=== PATIENT | female | born 1970 ===

== ENCOUNTER 2023-09-27 12:41 | Outpatient (AMB) | payer OTHER, SELFPAY ==
--- NOTE | 2023-09-27 13:27 | A.OFFVIS_ITS ---
Intake Vital Signs 3 09/27/23 13:40 Height 5 ft 5 in Weight 240 lb 6 oz BMI 40.0 BP 173/100 H Blood Pressure Location Lt brachial Position Sitting Pulse 76 Intake Visit Reasons: Right axillary abscess w/ drainage Intake Note: Patient is seen in office for evaluation and treatment of an abscess of the right axilla. 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 Lather from neck to toes.; 2 doses dulaglutide (Trulicity) mg subcut empagliflozin (Jardiance) 25 mg PO DAILY fluticasone propionate 50 mcg/actuation 1 spray intranasal BID folic acid 1 mg PO DAILY hydroxyzine HCl 50 mg PO BID lurasidone 80 mg PO DAILY omalizumab (Xolair) mg subcut omeprazole 20 mg PO DAILY rosuvastatin 5 mg PO DAILY HPI HPI Comments 2 History of Present Illness0 Details 53-year-old female patient presenting wi th complaints of a right axillary abscess. She has had several recurrent infections treated with oral antibiotics. She reports the site will settle but then refill and become infected again. She is never undergone incision and drainage. She currently denies any bleeding or discharge, fever, chills or other associated symptoms. She denies symptoms in the left axilla or groins. She does feel a scar in the axilla which she is self-conscious about. 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 [facility] Family History Maternal Aunt Breast cancer, Onset Age: 40 Maternal Aunt Breast cancer, Onset Age: 40 Maternal Aunt Breast cancer, Onset Age: 50 Social History Alcohol intake: never Patient Tobacco Use Status: Never used Tobacco Review of Systems Const All systems reviewed & are unremarkable except as noted in HPI and below Physical Exam Vital Signs: Last Vital Signs Pulse 76 09/27/23 13:40 BP 173/100 H 09/27/23 13:40 BMI result Body Mass Index 40.0 Const General: cooperative and no acute distress Nutritional Appearance: well nourished Orientation/consciousness: patient oriented x3 Limitations: no limitations HEENT Head: Yes normocephalic and Yes atraumatic Ears: hearing grossly normal bilaterally Chest Chest/axillae images: 2 1. Area of scarring in the lateral inferior axilla, no erythema or fluctuance is noted at this time. No tenderness to palpation. Findings suggestive of hidradenitis. Resp Effort & Inspection: normal respiratory effort, no audible wheezes, no cough and no respiratory distress Cardio Jugular venous distension: no JVD GI Inspection: Yes normal to inspection Skin Other: Warm, dry, no rash Neuro General: patient oriented x3 Extrem General: Yes no clubbing, cyanosis or edema Assessment & Plan Assessment & Plan (1) Hidradenitis: Code(s): L73.2 - Hidradenitis suppurativa Plan Patient with a small area of hidradenitis in the right axilla. There is no active infection at this time and no surgical drainage is required at this time. I would recommend skin decontamination using a surgical scrub and a prescribed Hibiclens. This should be used several times weekly. She was also cautioned to avoid touching her axilla and then touch other areas of her body. She was encouraged to wash her hands if touching the infection. She expressed understanding and agrees with the plan. She should follow up as needed. Medications: New 2 chlorhexidine gluconate 4% (Hibiclens) 1 appl topically 2-3 times weekly, lather in shower and leave on for 1 minute before rinsing. Lather from neck to toes.; 236 mL 4RF L73.2 - Hidradenitis suppurativa Coding Level of Care Code New Pt Level 4 (66674) Diagnoses Hidradenitis L73.2
[2023-09-27 13:40] VITALS: BP 173/100; PULSE 76; BMI 40.0
== END 2023-09-27 13:42 | disposition home or self-care (01) ==
PROVIDERS: PCP Internal Medicine; Visit Provider Surgery
DX: L73.2 Hidradenitis suppurativa (principal)
CPT/HCPCS: 99204

== ENCOUNTER → 2023-09-27 12:41 | Outpatient (BNVA) | payer OTHER, SELFPAY | PROVIDERS: PCP Internal Medicine; Visit Provider Surgery ==

== ENCOUNTER 2023-10-10 14:02 | Outpatient (AMB) | payer OTHER, SELFPAY ==
--- NOTE | 2023-10-10 14:08 | A.OFFVIS_ITS ---
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 Lather from neck to toes.; 2 doses dulaglutide (Trulicity) mg subcut empagliflozin (Jardiance) 25 mg PO DAILY fluticasone propionate 50 mcg/actuation 1 spray intranasal BID folic acid 1 mg PO DAILY hydroxyzine HCl 50 mg PO BID lurasidone 80 mg PO DAILY omalizumab (Xolair) mg subcut omeprazole 20 mg PO DAILY rosuvastatin 5 mg PO DAILY HPI HPI Comments History of Present Illness Details 53-year-old female patient returning for a follow-up examination of the right axillary hidradenitis. She previously presented with complaints of a right axillary abscess. She has had several recurrent infections treated with oral antibiotics. She reports the site will settle but then refill and become infected again. She is never undergone incision and drainage. She currently denies any bleeding or discharge, fever, chills or other associated symptoms. She denies symptoms in the left axilla or groins. She does feel a scar in the axilla which she is self-conscious about. 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 [facility] Medical History (Updated 10/10/23 @ 14:20 by Horacio Mcdonnell MD) Diabetes Family History Maternal Aunt Breast cancer, Onset Age: 40 Maternal Aunt Breast cancer, Onset Age: 40 Maternal Aunt Breast cancer, Onset Age: 50 Social History Alcohol intake: never Patient Tobacco Use Status: Never used Tobacco Review of Systems Const All systems reviewed & are unremarkable except as noted in HPI and below Physical Exam Const General: cooperative and no acute distress Nutritional Appearance: well nourished Orientation/consciousness: patient oriented x3 Limitations: no limitations HEENT Head: Yes normocephalic and Yes atraumatic Ears: hearing grossly normal bilaterally Chest Other: Right axilla with a 4 x 2 cm area of hidradenitis not actively infected at this time. There is tenderness to palpation. No other areas of hidradenitis appreciated. Resp Effort & Inspection: normal respiratory effort, no audible wheezes, no cough and no respiratory distress Cardio Jugular venous distension: no JVD GI Inspection: Yes normal to inspection Skin Other: Warm, dry, no rash Neuro General: patient oriented x3 Extrem General: Yes no clubbing, cyanosis or edema Assessment & Plan Assessment & Plan (1) Hidradenitis: Code(s): L73.2 - Hidradenitis suppurativa Plan 53-year-old female patient returning for follow-up of ambulation of the right axillary hidradenitis. She continues to have symptoms from this location and is requesting excision of the recurrent hidradenitis location. After discussion of the procedure, risks, and alternatives, she consents to a wide excision of hidradenitis right axilla. Coding Level of Care Code Est Pt Level 3 (42588) Diagnoses Hidradenitis L73.2
[2023-10-10 14:15] VITALS: BP 166/90; PULSE 89; BMI 39.9
== END 2023-10-10 14:18 | disposition home or self-care (01) ==
PROVIDERS: PCP Internal Medicine; Visit Provider Surgery
DX: L73.2 Hidradenitis suppurativa (principal)
CPT/HCPCS: 99213

== ENCOUNTER → 2023-10-10 14:02 | Outpatient (BNVA) | payer OTHER, SELFPAY | PROVIDERS: PCP Internal Medicine; Visit Provider Surgery ==

== ENCOUNTER 2023-10-31 11:01 | Day surgery (SDC) | payer OTHER, SELFPAY ==
[2023-10-29 10:58] VITALS: BMI 39.9
--- NOTE | 2023-10-30 09:31 | HO.ANESPROP2 ---
Documented by User: Aamirani Centeno NP 10/30/23 09:33 HPI - Anesthesia Eval Consult details Narrative: 53yo F for Right Excision Hidradenitis of axilla Anesthesia Pre-Procedure Meds Is the patient on any of the following meds?: Dulaglutide (Trulicity) and Any other SGL-1 drugs or drugs that delay gastric emptying (Jardiance) PMFSH Active Problems Active Problems: All Active Problems Diabetes (Acute) Hidradenitis (Acute) Past Medical History Medical History (Updated 10/30/23 @ 09:32 by Amairani Centeno NP) GERD (gastroesophageal reflux disease) HLD (hyperlipidemia) HTN (hypertension) Diabetes Family History Family History Maternal Aunt Breast cancer, Onset Age: 40 Maternal Aunt Breast cancer, Onset Age: 40 Maternal Aunt Breast cancer, Onset Age: 50 Social History Social History Alcohol intake: never Patient Tobacco Use Status: Never used Tobacco Use of substances other than those prescribed or required for medical reasons: No Are you DNR?: No Advance Directives: No Advance Directives Information Provided: Yes Recently lost weight without trying: No How much weight loss: 2-13 pounds Eating poorly because of decreased appetite: No Nutrition screen score: 1 Nutrition Risks: No Nutritional Risk Meds Allergies Allergy/AdvReac Type Severity Reaction Status Date / Time No Known Allergies Allergy Verified 09/27/23 13:32 Home Medications ?Medication ?Instructions ?Recorded ?Confirmed ?Last Taken ?Type albuterol sulfate 90 mcg/actuation inhalation 09/27/23 10/10/23 Unknown History aerosol inhaler amlodipine 10 mg tablet 10 mg PO DAILY 09/27/23 10/10/23 Unknown History dulaglutide 0.75 mg/0.5 mL mg subcut 09/27/23 10/10/23 Unknown History subcutaneous pen injector (Trulicity) empagliflozin 25 mg tablet 25 mg PO DAILY 09/27/23 10/10/23 Unknown History (Jardiance) fluticasone propionate 50 1 spray intranasal BID 09/27/23 10/10/23 Unknown History mcg/actuation nasal spray,suspension folic acid 1 mg tablet 1 mg PO DAILY 09/27/23 10/10/23 Unknown History hydroxyzine HCl 50 mg tablet 50 mg PO BID 09/27/23 10/10/23 Unknown History lurasidone 80 mg tablet 80 mg PO DAILY 09/27/23 10/10/23 Unknown History omalizumab 150 mg/mL subcutaneous mg subcut 09/27/23 10/10/23 Unknown History syringe (Xolair) omeprazole 20 mg capsule,delayed 20 mg PO DAILY 09/27/23 10/10/23 Unknown History release rosuvastatin 5 mg tablet 5 mg PO DAILY 09/27/23 10/10/23 Unknown History Exam Height,Weight and Vital Signs: Height 5 ft 5 in Weight 108.862 kg Assessment and Plan Assessment Anesthesia Assessment: Chart Reviewed Documented by User: Whit Vilalfuerte MD 10/31/23 12:25 HPI - Anesthesia Eval Anesthesia Pre-Procedure Meds If Yes to any meds - educate patient: Pt education - increased risk of aspiration and Pt education - possibility of cancelled proc at provider's discretion PMFSH Past Medical History Medical History (Updated 10/30/23 @ 09:32 by Amairani Centeno NP) GERD (gastroesophageal reflux disease) HLD (hyperlipidemia) HTN (hypertension) Diabetes Family History Family History Maternal Aunt Breast cancer, Onset Age: 40 Maternal Aunt Breast cancer, Onset Age: 40 Maternal Aunt Breast cancer, Onset Age: 50 Family history of problems with anesthesia: No Surgical History History of Problems with Anesthesia: No Social History Social History Alcohol intake: never Patient Tobacco Use Status: Never used Tobacco Use of substances other than those prescribed or required for medical reasons: No Are you DNR?: No Advance Directives: No Advance Directives Information Provided: Yes Recently lost weight without trying: No How much weight loss: 2-13 pounds Eating poorly because of decreased appetite: No Nutrition screen score: 1 Nutrition Risks: No Nutritional Risk Meds Allergies Allergy/AdvReac Type Severity Reaction Status Date / Time No Known Allergies Allergy Verified 09/27/23 13:32 Home Medications ?Medication ?Instructions ?Recorded ?Confirmed ?Last Taken ?Type albuterol sulfate 90 mcg/actuation inhalation 09/27/23 10/10/23 Unknown History aerosol inhaler amlodipine 10 mg tablet 10 mg PO DAILY 09/27/23 10/10/23 Unknown History dulaglutide 0.75 mg/0.5 mL mg subcut 09/27/23 10/10/23 Unknown History subcutaneous pen injector (Trulicity) empagliflozin 25 mg tablet 25 mg PO DAILY 09/27/23 10/10/23 Unknown History (Jardiance) fluticasone propionate 50 1 spray intranasal BID 09/27/23 10/10/23 Unknown History mcg/actuation nasal spray,suspension folic acid 1 mg tablet 1 mg PO DAILY 09/27/23 10/10/23 Unknown History hydroxyzine HCl 50 mg tablet 50 mg PO BID 09/27/23 10/10/23 Unknown History lurasidone 80 mg tablet 80 mg PO DAILY 09/27/23 10/10/23 Unknown History omalizumab 150 mg/mL subcutaneous mg subcut 09/27/23 10/10/23 Unknown History syringe (Xolair) omeprazole 20 mg capsule,delayed 20 mg PO DAILY 09/27/23 10/10/23 Unknown History release rosuvastatin 5 mg tablet 5 mg PO DAILY 09/27/23 10/10/23 Unknown History Exam Airway Mallampati Class: II TM Dist: >3cm Neck ROM: Full Heart: rrr Lungs: cta Assessment and Plan Assessment Anesthesia Assessment: Anesthesia Plan Discussed Final Anesthetic Review Family History of Problems with Anesthesia: No History of Problems with Anesthesia: No NPO: Yes ASA Class: III Final Preanesthetic Review: No Changes in Pt Med Stat, Meds/Allgs Chart Reviewed and Consent Obtained/Reviewed Patient Risk: Intermediate Procedure Risk: Low Anesthetic Plan Anesthetic Plan: GA Disposition: Standard PACU
[2023-10-31] VITALS (7 sets, daily range): BP systolic 129–155; BP diastolic 85–95; PULSE 69–84; RESP 16–18; TEMP 36.1–36.7; O2SAT 94–97
[2023-10-31 11:42] LABS: Glucose, Whole Blood 129 mg/dL (60-115)
[2023-10-31] MEDS: Lactated Ringers 1,000 ML 100 ML IVCONT (11:53)
--- NOTE | 2023-10-31 13:34 | MHC.SHP ---
Pre-Procedural Eval Section A - 24 Hr Update-Section A only Date of Service: 10/31/23 The patient is an INPATIENT: No Changes since office visit: Yes Patient answered all questions; No Cold of Flu in the past 2 weeks, No New Medical Problems and No Changes in Medication The patient has been examined within 24 hours of the surgical procedure. The History & Physical has been completed within 30 days and I have reviewed it.: Yes Section B - Complete if H&P > 30 days Chief Complaint: Hidradenitis suppurativa Allergies: Allergies Allergy/AdvReac Type Severity Reaction Status Date / Time No Known Allergies Allergy Verified 09/27/23 13:32 Plan Diagnosis/Plan: Unchanged I have reviewed the history and physical and performed a pertinent physical examination on my patient. No changes have occurred unless specified. Time Spent With Patient Time: Total time managing care of this patient today ____ minutes.
--- NOTE | 2023-10-31 13:37 | W.PM.OPN ---
Operative Note Operative Note Date of Service: 10/31/23 Narrative: Preoperative diagnosis: Hidradenitis right axilla Postoperative diagnosis: Same Procedure: Excision of hidradenitis right axilla Surgeon: Horacio Mcdonnell MD Supervisor Travel Information Center: none Anesthesia: General LMA Indications for procedure: 53-year-old female patient with recurrent episodes of infection in the right axilla found to have an area of hidradenitis measuring approximately 4 x 2 cm in the lateral axilla. Examination today reveals no active infection and no evidence of abscess. Operative findings: 4 x 2 cm area of inflammation consistent with hidradenitis Specimen: Hidradenitis right axilla Estimated blood loss: 5 mL Complications: None Procedure details: Patient was brought to the OR placed in a supine position. After administering general anesthesia the patient's right axilla was prepped with ChloraPrep and draped in a sterile fashion. A surgical time-out was called the consent confirmed. Patient received preoperative antibiotics and Venodyne boots were in place. Local anesthesia was then infiltrated circumferentially using Sensorcaine 0.5%. Elliptical incision was then created using a scalpel oriented transversely to encompass the entire area of hidradenitis. Electrocautery was then used to dissect the lesion from the subcutaneous tissue. Hemostasis was assured at all times using electrocautery. The specimen was passed off the table and sent to pathology for further examination. Wounds were then irrigated with saline solution. Dermis was then reapproximated using interrupted 3-0 Polysorb sutures. Skin closed using a interrupted 3-0 nylon suture. Sterile dressings consisting of 4 x 4 gauze and paper tape was then applied. The patient tolerated the procedure well. Sponge, instrument, needle counts reported as correct. The patient was transferred to PACU in stable condition.
[2023-10-31] MEDS: oxyCODONE HCl Immed Release 5 MG TABLET PO (15:05)
[2023-10-31] MEDS: Acetaminophen 325 MG TABLET 650 MG PO (15:25)
== END 2023-10-31 15:54 | disposition home or self-care (01) ==
PROVIDERS: PCP Internal Medicine; Visit Provider Surgery
PROC: (CPT 11450; principal; 2023-10-31 12:40)
DX: L73.2 Hidradenitis suppurativa (principal); I10 Essential (primary) hypertension; E11.9 Type 2 diabetes mellitus without complications; Z79.84 Long term (current) use of oral hypoglycemic drugs; Z79.85 Long-term (current) use of injectable non-insulin antidiabetic drugs; Z79.899 Other long term (current) drug therapy
CPT/HCPCS: 11450; 82947; 88305; J0665; J0690; J1100; J1885; J2250; J2405; J2704; J3010

== ENCOUNTER → 2023-10-31 11:01 | Outpatient (BNV) | payer OTHER, SELFPAY | PROVIDERS: PCP Internal Medicine; Visit Provider Surgery | DX: L73.2 Hidradenitis suppurativa (principal) | CPT/HCPCS: 11450 ==

== ENCOUNTER 2023-11-09 10:44 | Outpatient (AMB) | payer OTHER, SELFPAY ==
--- NOTE | 2023-11-09 11:05 | A.OFFVIS_ITS ---
Intake Visit Reasons: S/P excision hidradenitis Rt axilla Intake Note: Patient is seen in office for post op assessment post excision of right axilla hidradenitis. 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 Lather from neck to toes.; 2 doses dulaglutide (Trulicity) mg subcut empagliflozin (Jardiance) 25 mg PO DAILY fluticasone propionate 50 mcg/actuation 1 spray intranasal BID folic acid 1 mg PO DAILY hydroxyzine HCl 50 mg PO BID lurasidone 80 mg PO DAILY omalizumab (Xolair) mg subcut omeprazole 20 mg PO DAILY oxycodone 5 mg PO Q6H PRN rosuvastatin 5 mg PO DAILY HPI Comments Details: Patient returns 1 week following excision of an area of hidradenitis of the right axilla. Pathology confirmed hidradenitis. Patient tolerated the procedure well but does report some soreness from the sutures pulling. She denies any bleeding or discharge. [facility] Medical History (Updated 10/30/23 @ 09:32 by Amairani Centeno NP) GERD (gastroesophageal reflux disease) HLD (hyperlipidemia) HTN (hypertension) Diabetes Family History Maternal Aunt Breast cancer, Onset Age: 40 Maternal Aunt Breast cancer, Onset Age: 40 Maternal Aunt Breast cancer, Onset Age: 50 Social History Alcohol intake: never Patient Tobacco Use Status: Never used Tobacco Physical Exam Chest Other: Right axillary incision is clean, dry, and intact without redness or discharge. Sutures remain intact. Sutures removed and Steri-Strips applied. Extrem Other: No extremity edema Assessment & Plan Assessment & Plan (1) Hidradenitis: Code(s): L73.2 - Hidradenitis suppurativa Category: Medical Plan 53-year-old female patient status post excision of an area of hidradenitis right axilla 1 week ago. She tolerated the procedure well the wounds are healing nicely. She should follow up as needed. Coding Level of Care Code Global (08738) Diagnoses Hidradenitis L73.2
== END 2023-11-09 11:19 | disposition home or self-care (01) ==
PROVIDERS: PCP Internal Medicine; Visit Provider Surgery
DX: L73.2 Hidradenitis suppurativa (principal)
CPT/HCPCS: 99024

== ENCOUNTER → 2023-11-09 10:44 | Outpatient (BNVA) | payer OTHER, SELFPAY | PROVIDERS: PCP Internal Medicine; Visit Provider Surgery ==